=== PATIENT | male | born 1940 | race Asian ===

== ENCOUNTER 2020-06-05 18:15 | Emergency (ER) | payer OTHER, BC, SELFPAY ==
[~2020-06-05] VITALS: Ht 162.6 cm; Wt 56.7 kg
[2020-06-05 18:21] VITALS: BP 140/65
== END 2020-06-05 19:20 | disposition home or self-care (01) ==
LOC: MED 18:15
DX: E11.9 Type 2 diabetes mellitus without complications (principal); Z20.828 Contact with and (suspected) exposure to other viral communicable diseases
CPT/HCPCS: 99283

== ENCOUNTER 2020-10-09 12:13 | Emergency (ER) | payer OTHER, BC, SELFPAY ==
[~2020-10-09] VITALS: Ht 157.5 cm; Wt 58.1 kg
[2020-10-09 12:23] VITALS: BP 144/88
--- NOTE | 2020-10-09 13:50 | NUR ---
Patient discharged with v/s stable. Written and verbal after care instructions given and explained. Patient verbalized understanding. Ambulatory with steady gait. All questions addressed prior to discharge. Advised to follow up with PMD. VSS, IN NAD, AMBULATED WITH STEADY GAIT. ID BAND REMOVED, NO IV ACCESS THIS VISIT. PT IN AGREEMENT WITH PLAN OF CARE.
== END 2020-10-09 13:50 | disposition home or self-care (01) ==
LOC: MED 12:13
DX: E11.9 Type 2 diabetes mellitus without complications (principal); Z01.84 Encounter for antibody response examination; Z20.89 Contact with and (suspected) exposure to other communicable diseases
CPT/HCPCS: 87426; 99283; U0003